=== PATIENT | female | born 1975 | race Two or more races ===

== ENCOUNTER 2023-07-11 12:25 | Emergency (ER) | payer MEDICAID ==
[~2023-07-11] VITALS: Ht 134.6 cm; Wt 58.6 kg
[2023-07-11 12:57] VITALS: TEMP 98.1
[2023-07-11] MEDS ORDERED: TraMADol HCL 50 MG TABLET PO ONE (14:15)
[2023-07-11 18:22] VITALS: BP 106/59; PULSE 66; RESP 16
== END 2023-07-11 18:30 | disposition home or self-care (01) ==
LOC: EMS 12:25
DX: S80.02XA Contusion of left knee, initial encounter (principal); S90.31XA Contusion of right foot, initial encounter; S93.501A Unspecified sprain of right great toe, initial encounter; S63.591A Other specified sprain of right wrist, initial encounter; F41.9 Anxiety disorder, unspecified; J45.909 Unspecified asthma, uncomplicated; F32.A Depression, unspecified; X58.XXXA Exposure to other specified factors, initial encounter; Y93.89 Activity, other specified; Y92.89 Other specified places as the place of occurrence of the external cause; Y99.8 Other external cause status
CPT/HCPCS: 99284; 73110-TC; 73560-TC; 73564-TC; 73630-TC; Z7502; Z7610